=== PATIENT | female | born 1960 | race Caucasian/White ===

== ENCOUNTER 2020-03-12 19:28 | Emergency (ER) | payer BC ==
[2020-03-12] MEDS ORDERED: ONDANSETRON ODT 8 MG TAB SL ONE (20:07)
[2020-03-12] MEDS ORDERED: HYDROcodone 5MG/APAP 325MG 1 EA TAB PO ONE (20:07)
[2020-03-12] MEDS ORDERED: MORPHINE SULFATE INJ 10 MG/ML VIAL ONE (20:25)
[2020-03-12] MEDS ORDERED: MORPHINE SULFATE INJ 10 MG/ML VIAL IM ONE (20:29)
[2020-03-12] MEDS ORDERED: LIDOCAINE 2 % GEL 5 ML TUBE TOP ONE (20:54)
--- NOTE | 2020-03-12 21:34 | ED.PDOC ---
History of Present Illness - General Chief Complaint: ENT Problem Stated Complaint: nose bleed post surgery Time Seen by Provider: 03/12/20 19:40 - History of Present Illness Initial Comments: 59 yo F with sinus surgery one week ago presents with bilateral nasal bleeding. Saw ENT today, Dr. Yeh today and had two scabs wound debridment. She then went home and started to have bilateral nasal bleeding. She has tried afrin spray, pressure without improvement in bleeding so came to the ER to be evaluated. + nausea from swallowing so much blood. +anxiety. no dizziness, chest pain or syncope. Allergies/Adverse Reactions: Allergies Penicillins Allergy (Verified 03/12/20 22:15) Sulfa Drugs Allergy (Verified 03/12/20 22:15) Home Medications: Ambulatory Orders Ondansetron HCl [Zofran] 4 mg PO TID PRN #15 tab 03/12/20 Review of Systems - Review of Systems Constitutional: States: malaise. Denies: chills, fever EENTM: States: see HPI Respiratory: Denies: cough, short of breath Cardiology: Denies: chest pain, palpitations, syncope Gastrointestinal/Abdominal: States: nausea. Denies: abdominal pain Genitourinary: Denies: hematuria Musculoskeletal: Denies: back pain, joint pain, neck pain Skin: Denies: rash Neurological: Denies: headache, numbness, paresthesia, tingling, tremors Endocrine: Denies: unexplained weight gain, unexplained weight loss Hematologic/Lymphatic: Denies: easy bleeding, easy bruising Past Medical History (General) - Patient Medical History Hx Other - free text: pacemaker Family Medical History - Family History Mother Family History: Unknown Physical Exam - Physical Exam General Appearance: Alert, Anxious, No apparent distress Eye Exam: bilateral normal Nasal Exam: active bleeding Throat Exam: normal mouth inspection, pharynx normal Neck: non-tender, full range of motion, supple, normal inspection Cardiovascular/Respiratory: regular rate, rhythm, no M/R/G, normal peripheral pulses, no JVD Abdominal Exam: non-tender Neurologic: production analyst II-XII nml as tested, no motor/sensory deficits, alert, normal mood/affect, oriented x 3 Skin Exam: normal color, warm/dry Progress - Progress Progress: 03/12/20 23:44 pressure applied. afrin packing removed. large blood clot removed. pressure was applied. attemped posterior packing but patient could not tolerate the pain. Given 4 mg morphine IM. Placed bilateral anterior packing. No posterior nasal drip noted. Will leave this as no further bleeding is seen. Patient allergic to Augmentin. She is already on levaquin. no posterior packing thus no need to add an additional antibiotics. Continue current antibiotic. Strict return precautions given. Discussed with patients physician who will see her in office tomorrow. The data reviewed when caring for this patient included: nurse notes, prior records, etc. The history and assessments from nurses notes were reviewed and considered, and the patient's home medication list was also reviewed and considered. My assessment and the results of testing completed here in the ED were discussed with the patient/family. All questions were answered, and they express understanding of my assessment and the plan. They have been instructed to return if their symptoms worsen, and have been asked to follow up with their director chemistry to recheck today's presenting complaint. Strict return precautions given. I have reviewed medication, benefits, alternatives and side effects. Patient decided to proceed with medication.Dunia Lance DO #[id number] 03/12/20 21:34 Discharge Stat Laboratory Results WBC 12.0 K/mm3 (4.8-10.8) H 03/12/20 20:05 RBC 3.63 M/mm3 (4.20-5.40) L 03/12/20 20:05 Hgb 11.0 gm/dL (12.0-16.0) L 03/12/20 20:05 Hct 32.7 % (36.0-47.0) L 03/12/20 20:05 MCV 90.1 fl (81.0-99.0) 03/12/20 20:05 MCH 30.2 pg (27.0-31.0) 03/12/20 20:05 MCHC 33.5 g/dL (33.0-37.0) 03/12/20 20:05 RDW 13.8 % (11.5-14.5) 03/12/20 20:05 Plt Count 328 K/mm3 (130-400) 03/12/20 20:05 MPV 6.9 fl (7.40-10.4) L 03/12/20 20:05 Absolute Neuts (auto) 8.80 K/uL (1.8-6.8) H 03/12/20 20:05 Absolute Lymphs (auto) 2.40 K/uL (1.0-3.4) 03/12/20 20:05 Absolute Monos (auto) 0.70 K/uL (0.2-0.8) 03/12/20 20:05 Absolute Eos (auto) 0.10 K/uL (0.0-0.4) 03/12/20 20:05 Absolute Basos (auto) 0.10 K/uL (0.0-0.1) 03/12/20 20:05 Neutrophils % 73.4 % (42.0-78.0) 03/12/20 20:05 Lymphocytes % 20.0 % (20.0-50.0) 03/12/20 20:05 Monocytes % 5.5 % (2.0-9.0) 03/12/20 20:05 Eosinophils % 0.5 % (1.0-5.0) L 03/12/20 20:05 Basophils % 0.6 % (0.0-2.0) 03/12/20 20:05 PT 10.4 SECONDS (9.0-10.9) 03/12/20 20:05 INR 1.05 (0.9-1.15) 03/12/20 20:05 PTT (SP) 22.1 SECONDS (21.8-31.6) 03/12/20 20:05 - Results/Orders Results/Orders: After anterior packing bleeding stopped so no need for posterior packing placement. Departure - Departure Clinical Impression: Epistaxis Time of Disposition: 21:33 Disposition: Discharge to Home or Self Care Departure Forms: ED Discharge - Pt. Copy, Patient Portal Self Enrollment Instructions: DI for Ear Pain-Adult, Nosebleeds (DC) Referrals: Rocío Solis MD [Primary Care Provider] - 1-2 Days Prescriptions: Ondansetron HCl [Zofran] 4 mg PO TID PRN #15 tab PRN Reason: Vomiting Home Medications: Ambulatory Orders Ondansetron HCl [Zofran] 4 mg PO TID PRN #15 tab 03/12/20 Additional Instructions: Follow up with your ENT doctor tomorrow. continue current antibiotics.
[2020-03-12] MEDS ORDERED: traMADol HCL 50 MG (ER DISP) # 6 TABS PO ONE (22:02)
[2020-03-12 22:22] VITALS: BP 115/72
[2020-03-12 22:47] VITALS: TEMP 97; O2SAT 97
== END 2020-03-12 22:20 | disposition home or self-care (01) ==
LOC: ER 19:28
DX: R04.0 Epistaxis (principal); R11.0 Nausea; Z98.890 Other specified postprocedural states; Z95.0 Presence of cardiac pacemaker; Z88.0 Allergy status to penicillin; Z88.2 Allergy status to sulfonamides
CPT/HCPCS: 36415; 85025; 85610; 85730; J2270